=== PATIENT | female | born 1955 | race Caucasian/White ===

== ENCOUNTER 2018-07-23 18:58 | Emergency (ER) | payer MEDICARE, OTHER ==
[~2018-07-23] VITALS: Ht 152.4 cm; Wt 74.8 kg
--- OUTSIDE RECORDS SUMMARY | 2018-07-23 19:50 | XMS REPORT | Continuity of Care Document ---
Author Organization Unknown Address Unknown Allergies Active Description Code Type Severity Reaction Onset Reported/Identified Relationship to Patient Clinical Status Yes NO NAME AVAILABLE [id number] DRUG N/ A N/A Medications There is no data. Problems There is no data. Procedures There is no data. Results There is no data. Encounters ACCT No. Visit Date/Time Discharge Status Pt. Type Provider Facility Loc./Unit Complaint [id number] 01/12/2018 13:03:35 01/12/2018 23:59:59 [facility] Outpatient LEELA FIGUEROA [facility] [id number] 11/30/2017 09:12:01 11/30/2017 23:59:59 [facility] Outpatient [facility] [id number] 04/21/2017 16:38:56 04/21/2017 23:59:59 [facility] Outpatient BRENDA SMITH [facility] [id number] 11/20/2016 09:51:58 11/20/2016 23:59:59 [facility] Outpatient HYACINTH RADFORD [facility] [id number] 11/25/2017 11:13:31 Document Registration [id number] 02/22/2015 13:21:46 02/22/2015 23:59:59 [facility] Outpatient Ashia Rogers [id number] 06/03/2018 16:45:00 06/03/2018 23:59:59 [facility] Outpatient ROJELIO HERNADEZ [facility]
--- NOTE | 2018-07-23 19:58 | Diagnostic Imaging Report ---
Indication: Fall with injury to right shoulder. Time of exam: 7:45 PM Three views of the right shoulder were obtained. There is an acute fracture of the proximal humerus. This involves the greater tuberosity. The humeral neck appears to be intact. Glenohumeral alignment is normal. Acromiohumeral space is normal. Acromioclavicular line is normal. Impression: Proximal right humerus fracture involving the greater tuberosity. Dictated by: Dictated on workstation # [id number]
--- NOTE | 2018-07-23 19:59 | Diagnostic Imaging Report ---
INDICATION: Fall. Pain. COMPARISON: None. FINDINGS: Two radiographic views of the right hip were obtained. There is no fracture, dislocation, bone destruction, or radiopaque foreign body. The visualized pelvic osseous structures and the SI joints demonstrate no acute fracture or dislocation. There is no bone destruction or radiopaque foreign body. The surrounding soft tissue structures are unremarkable. IMPRESSION: 1. No acute fracture or dislocation in the pelvis or right hip. Dictated by: Dictated on workstation # [id number]
--- NOTE | 2018-07-23 20:00 | ED Trauma-Multisystem ---
General Chief Complaint: Trauma-Non Activation Stated Complaint: FALL/R SIDE PAIN Nursing Triage Note: PATIENT AMBULATORY TO ER WITH SPOUSE COMPLAINING OF FALL APPROXIMATELY 1 HOUR AGO. PATIENT STATES SHE WAS OUTSIDE AND SLIPPED ON THE SIDEWALK. PATIENT STATES SHE HIT THE RIGHT SIDE OF HER HEAD, RIGHT SHOULDER PAIN AND RIGHT HIP PAIN. PATIENT DENIES ANY LOSS OF CONSCIOUSNESS. Source of Information: Patient Exam Limitations: No Limitations History of Present Illness Date Seen by Provider: Jul 23, 2018 Time Seen by Provider: 19:30 Initial Comments 63-year-old female who presents to the emergency room with complaints of a fall approximately 1 hour prior to arrival. She reports that she was outside in her yard and slipped on the wet sidewalk causing her to fall onto her right side striking her head, right shoulder and right hip on the ground. She denies loss of consciousness or neck pain. Occurred: Just Prior to Arrival Allergies and Home Medications Allergies Coded Allergies: No Known Drug Allergies (Unverified , 07/23/18) Home Medications Hydrocodone Bit/Acetaminophen 1 Tab Tab, 1 EACH PO Q4-6HR PRN for PAIN-MODERATE Prescribed by: OLGA AKERS on 07/23/182056 Patient Home Medication List Home Medication List Reviewed: Yes Review of Systems Review of Systems Constitutional: see HPI; No chills, No fever Musculoskeletal: see HPI, joint pain (right shoulder right hip) All Other Systems Reviewed Negative Unless Noted: Yes Past Lxxfiyc-Nllpia-Qxnsqu Hx Past Med/Social Hx: Reviewed Nursing Past Med/Soc Hx Patient Social History Alcohol Use: Denies Use Recreational Drug Use: No Smoking Status: Never a Smoker 2nd Hand Smoke Exposure: No Recent Foreign Travel: No Contact w/Someone Who Travel: No Recent Infectious Disease Expo: No Recent Hopitalizations: No Seasonal Allergies Seasonal Allergies: Yes Past Medical History Surgeries: No Chronic Bronchitis Cardiac: Yes Hypertension Neurological: No Genitourinary: No Hiatal Hernia Musculoskeletal: No Endocrine: No HEENT: No Cancer: No Psychosocial: No Integumentary: No Family Medical History Reviewed Nursing Family Hx Physical Exam Vital Signs Vital Signs - First Documented 07/23/18 19:02 Temp 97.9 Pulse 91 Resp 18 B/P (MAP) 140/88 (105) Pulse Ox 97 O2 Delivery Room Air Height, Weight, BMI Height: 5'0" Weight: 165lbs. oz. 74.657328gw; BMI Method:Stated General Appearance: No Apparent Distress, WD/WN Head: No Evidence of Injury Eyes: Bilateral Eye Normal Inspection, Bilateral Eye PERRL, Bilateral Eye EOMI Cardiovascular: Regular Rate, Rhythm, No Edema, No Gallop, No JVD, No Murmur, Normal Peripheral Pulses Respiratory: Chest Non Tender, Lungs Clear, Normal Breath Sounds, No Accessory Muscle Use, No Respiratory Distress Extremity: Normal Capillary Refill, Normal Inspection, Normal Range of Motion, No Calf Tenderness, No Pedal Edema, Other (left shoulder tenderness) Neurologic/Psychiatric: Alert, Oriented x3, Normal Mood/Affect Skin: Normal Color, Warm/Dry Patient is neurovascularly intact Vinod Coma Score Best Eye Response ([place]): (4) Open Spontaneously Best Verbal Response (Vinod): (5) Oriented Best Motor Response ([place]): (6) Obeys Commands [place] Total: 15 Procedures/Interventions Splinting and Joint Reduction : Arm Sling: Large Progress/Results/Core Measures Results/Orders My Orders Orders - OLGA AKERS Shoulder, Right, 3 Views (07/23/18 19:35) Hip, Right, 2 Views (07/23/18 19:35) Ct Head/Cervical Spine Wo (07/23/18 20:00) Rx-Hydrocodone/Apap 5-325 Mg (Rx-Vicodin (07/23/18 21:15) Vital Signs/I&O 07/23/18 07/23/18 19:02 21:17 Temp 97.9 98.6 Pulse 91 101 Resp 18 18 B/P (MAP) 140/88 (105) 131/100 (110) Pulse Ox 97 95 O2 Delivery Room Air Room Air Blood Pressure Mean: 105 Progress Progress Note : Time: 20:53 Progress Note I have seen and evaluated the patient. I've informed her of her imaging studies. She was placed in a sling. She agrees to follow up with orthopedic surgeon of her choosing. She agrees with plan of care, plans for discharge, return precautions were given. Departure Impression Primary Impression: Fall Qualified Codes: W19.XXXA - Unspecified fall, initial encounter Additional Impression: Fracture of proximal end of right humerus Disposition: HOME, SELF-CARE Condition: Stable/Unchanged Departure-Patient Inst. Decision time for Depature: 20:53 Referrals: IPSEN,XIOMARA J MD NÚÑEZ,FRANCO G DO NO,LOCAL PHYSICIAN (PCP) Primary Care Physician MICHAEL ROSENBAUM MD Patient Instructions: Upper Arm Fracture Add. Discharge Instructions: Take medication as needed. Follow-up with an orthopedic surgeon of your choosing within 1 week for recheck. Ice to the sore areas at 20 minute intervals. Wear the sling at all times. Return back to the emergency room for worsening symptoms or concerns as needed. All discharge instructions reviewed with patient and/or family. Voiced understanding. Scripts Hydrocodone Bit/Acetaminophen (Hydrocodone/Acetaminophen 5/325mg Tablet) 1 Tab Tab 1 EACH PO Q4-6HR PRN for PAIN-MODERATE MDD 10, #14 TAB Prov: OLGA AKERS 07/23/18 OLGA AKERS Jul 23, 2018 20:00
--- NOTE | 2018-07-23 20:32 | Diagnostic Imaging Report ---
PROCEDURE: CT head and CT cervical spine without contrast. TECHNIQUE: Multiple contiguous axial images were obtained through the brain and cervical spine without the use of intravenous contrast. Sagittal and coronal reformations through the cervical spine were then performed. Auto Exposure Controls were utilized during the CT exam to meet ALARA standards for radiation dose reduction. INDICATION: Fall with head and neck injury. No prior studies available for comparison. CT head: The ventricles and sulci are within normal limits. There appears to be an area of encephalomalacia versus deep sulcus in the left posterior parietal-occipital lobe. No sulcal effacement or midline shift is seen. No acute intra-axial or extra-axial hemorrhage is detected. Cisterns are patent. Visualized paranasal sinuses are clear. IMPRESSION: No acute intracranial process is detected. CT cervical spine: Curvature and alignment is normal. There is multilevel degenerative disease, most prominent C4-5 and C5-6 levels with disc space narrowing and marginal spurring. No fracture is seen. Prevertebral tissues are within normal limits. Odontoid is intact. IMPRESSION: Cervical spondylosis. No acute bony abnormality is detected. Dictated by: Dictated on workstation # [id number]
[2018-07-23] MEDS ORDERED: ACHD5005 PO (20:57)
[2018-07-23] MEDS ORDERED: RX-HYDROCODONE/APAP 5/325 MG #4 TAB PK PO PRN (21:15)
[2018-07-23 21:17] VITALS: BP 131/100
== END 2018-07-23 21:20 | disposition home or self-care (01) ==
LOC: ER 19:00
DX: S42.251A Displaced fracture of greater tuberosity of right humerus, initial encounter for closed fracture (principal); S09.90XA Unspecified injury of head, initial encounter; M25.551 Pain in right hip; I10 Essential (primary) hypertension; Z87.19 Personal history of other diseases of the digestive system; Z87.09 Personal history of other diseases of the respiratory system; W01.198A Fall on same level from slipping, tripping and stumbling with subsequent striking against other object, initial encounter; Y92.480 Sidewalk as the place of occurrence of the external cause
CPT/HCPCS: 70450; 72125; 73030; 73502

== ENCOUNTER → 2020-02-04 | Outpatient (CLI) | payer BC, MEDICARE ==
[~2020-02-04] MED LIST: ACHD5005 PO
--- NOTE | 2020-02-04 15:54 | Diagnostic Imaging Report ---
INDICATION: Postmenopausal female. History of right humerus fracture after fall. COMPARISON: None FINDINGS: AP Spine L2-L4: [BMD (g/cm2): 1.203] [T-Score: 0.0] [Z-Score: 1.5] [BMD Previous: NA] [BMD % Change: NA] LT Hip Neck: [BMD (g/cm2): 0.837] [T-Score: -1.4] [Z-Score: 0.0] LT Hip Total: [BMD (g/cm2):0.955] [T-Score:-0.4] [Z-Score: 0.8] [BMD Previous: NA] [BMD % Change: NA] RT Hip Neck: [BMD (g/cm2):0.863] [T-Score:-1.3] [Z-Score:0.2] RT Hip Total: [BMD (g/cm2):0.988] [T-score:-0.2] [Z-Score:1.0] [BMD Previous:NA] [BMD % Change:NA] *Indicates significant change from prior examination based on 95% confidence level. World Health Organization criteria for BMD interpretation classify patients as Normal (T-score at or above -1.0), Osteopenic (T-score between -1.0 and -2.5) or Osteoporotic (T-score at or below -2.5). LIMITATIONS AND MODIFICATION: None. FRACTURE RISK (FRAX SCORE): The ten year probability of (%): Major Osteoporotic Fracture: [14] Hip Fracture: [1.5] IMPRESSION: 1. Osteopenia (Low bone mass). 2. None 3. See below National Osteoporosis Foundation guidelines on when to potentially initiate pharmacologic therapy. Based on the National Osteoporosis Foundation Guidelines, pharmacologic treatment should be initiated in any of the following, unless clinical conditions suggest otherwise: * Any patient with prior fragility fracture of the hip or vertebrae. A spine fracture indicates 5X risk for subsequent spine fracture and 2X risk for subsequent hip fracture. * Osteoporosis (T-score <-2.5). * Postmenopausal women and men age 50 and older with low bone mass/osteopenia (T-score between -1.0 and -2.5) by DXA and 10-year major osteoporotic fracture greater than 20% or a 10-year probability of hip fracture greater than 3%. These fracture risks are supplied above in the FRAX score, if applicable. * Clinician judgement and/or patient preferences may indicate treatment for people with 10-year fracture probabilities above or below these levels. Dictated by: Dictated on workstation # [id number]
== END ==
LOC: RAD 14:30
PROVIDERS: ATTEND Pediatrics
DX: Z00.00 Encounter for general adult medical examination without abnormal findings (principal); Z12.31 Encounter for screening mammogram for malignant neoplasm of breast; M85.80 Other specified disorders of bone density and structure, unspecified site; Z78.0 Asymptomatic menopausal state
CPT/HCPCS: 77063; 77067; 77080